=== PATIENT | male | born 1990 | race Two or more races ===

== ENCOUNTER 2019-12-12 21:06 | Emergency (ER) | payer OTHER ==
[~2019-12-12] VITALS: Ht 177.8 cm; Wt 72.6 kg
[2019-12-12 21:06] VITALS: BP 155/92
--- NOTE | 2019-12-12 21:23 | PCM.EKG ---
[facility] Test Date: 2019-12-12 Test Time: 21:06:13 Pat Name: WAI SNOWDEN Department: Patient ID: [id number] Room: Gender: M [employer] Specialist: ELISA : 1990 Requested By: Sergio WILKS Order Number: [id number] Reading MD: Sergio WILKS Measurements Intervals [place] Rate: 90 P: 72 WV: 155 QRS: 66 QRSD: 83 T: -3 QT: 358 QTc: 438 Interpretive Statements Sinus rhythm Borderline T abnormalities, inferior leads No previous ECG available for comparison Electronically Signed On 12-13-2019 22:09:51 CDT by Sergio WILKS Please click the below link to view image of tracing.
[2019-12-12 21:38] LABS: BASOPHIL % 0.5 % (0.0-0.2); EOSINOPHIL # 0.1 10^3/uL (0.0-0.2); EOSINOPHIL % 1.2 % (0.0-5.0); LYMPHOCYTES # 3.12 10^3/uL1 (1.0-4.8); LYMPHOCYTES % 36.7 % (24.0-44.0); MEAN CORP HGB 30.5 pg (26-34); MONOCYTES # 0.8 10^3/uL (0.3-0.8); MONOCYTES % 8.9 % (5.0-12.0); NEUTROPHIL # 4.4 10^3/uL (1.8-7.7); NEUTROPHILS % 52.2 % (41.0-85.0); PLATELET COUNT 264 10^3/uL (150-400); RED CELL DISTRIBUTION WIDTH 12.5 % (11.5-14.5)
--- NOTE | 2019-12-12 21:43 | DIREP ---
PROCEDURE:CHEST 1 VIEW COMPARISON:[facility], CR, XRAY ACUTE ABD INCL UPRIGHT CHEST, 10/09/2015, 10:08 AM. [facility], CT, CT-CHEST W/WO CONTRAST, 06/17/2015, 12:53 PM. [facility], CR, XRAY CHEST 2 VWS, 06/14/2015, 09:44 PM. INDICATIONS:Chest pain FINDINGS: LUNGS/PLEURA:No significant pulmonary parenchymal abnormalities. No effusions. VASCULATURE:Normal. Unremarkable pulmonary vasculature. CARDIAC:Normal. No cardiac silhouette abnormality or cardiomegaly. MEDIASTINUM:Normal. No visible mass or adenopathy. BONES:Normal. No fracture or visible bony lesion. OTHER:EKG leads overlie the chest. CONCLUSION:Normal examination. Dictated by: Wai Suh M.D. on 12/12/2019 at 09:41 PM
--- NOTE | 2019-12-12 21:44 | ER.PDOC ---
General Chief Complaint: Chest Pain-Cardiac Nature Stated Complaint: CHEST PAIN Time seen by MD: 21:43 Source: patient History of Present Illness Initial Comments Chest pain for 1 Month Severity/Quality: mild, dull Radiation: no radiation Activities at Onset: none Prior CP/Workup: No Prior Chest Pain, No Prior Cardiac Workup Nitro Today/Relief: No Nitro Taken Today Aspirin Today: No Aspirin Today Associated Symptoms: denies symptoms Allergies: Coded Allergies: No Known Drug Allergies (Verified Allergy, Unknown, 12/12/19) Past Medical History Medical History: no pertinent history Surgical History: no surgical history Social History Alcohol Use: rarely Drug Use: marijuana Constitutional: no symptoms reported Respiratory: no symptoms reported Cardiovascular: see HPI Gastrointestinal: no symptoms reported Genitourinary: no symptoms reported All Other Systems: Reviewed and Negative Physical Exam General Appearance: No Apparent Distress, WD/WN, Anxious Neck: Non-Tender, Full Range of Motion, Supple, Normal Inspection Respiratory: chest non-tender, lungs clear, normal breath sounds, no respiratory distress, no accessory muscle use Cardiovascular: Normal Peripheral Pulses, Regular Rate, Rhythm, No Edema, No Gallop, No JVD, No Murmur Gastrointestinal: Normal Bowel Sounds, No Organomegaly, No Pulsatile Mass, Non Tender, Soft Extremities: Normal Range of Motion, Non-Tender, Normal Inspection, No Pedal Edema, No Calf Tenderness, Normal Capillary Refill Neurologic/Psychiatric: technical assoc II-XII NML as Tested, No Motor/Sensory Deficits, Alert, Normal Mood/Affect, Oriented x 3 Skin: Normal Color, Warm/Dry Results/Orders Results/Orders Orders - ROSSY WILKS MD Cbc With Auto Diff (12/12/19 21:21) Comprehensive Metabolic Panel (12/12/19 21:21) Creatine Kinase (12/12/19 21:21) Creatine Kinase Mb (12/12/19 21:21) Troponin I (12/12/19 21:21) D-Dimer (12/12/19 21:21) Xr Chest 1v (12/12/19 21:21) Ekg-Routine (12/12/19 21:21) Vital Signs Date Time Temp Pulse Resp B/P (MAP) Pulse Ox O2 Delivery O2 Flow Rate FiO2 12/12/19 22:22 67 16 97 Room Air 12/12/19 21:55 76 16 97 Room Air 12/12/19 21:06 98.9 98 16 99 12/12/19 21:06 98.9 98 16 12/12/19 21:06 98.9 98 16 99 Room Air Laboratory Tests Test 12/12/19 21:13 White Blood Count 8.5 10^3/uL (4.5-11.0) Red Blood Count 4.65 10^6/uL (4.50-5.90) Hemoglobin 14.2 g/dL (13.9-16.3) Hematocrit 40.5 % (37.0-53.0) Mean Corpuscular Volume 87.1 fL (78-100) Mean Corpuscular Hemoglobin 30.5 pg (26-34) Mean Corpuscular Hemoglobin Concent 35.1 g/dL (33-36.5) Red Cell Distribution Width 12.5 % (11.5-14.5) Platelet Count 264 10^3/uL (150-400) Mean Platelet Volume 10.5 fL (7.8-11.0) Neutrophils (%) (Auto) 52.2 % (41.0-85.0) Lymphocytes (%) (Auto) 36.7 % (24.0-44.0) Monocytes (%) (Auto) 8.9 % (5.0-12.0) Neutrophils # (Auto) 4.4 10^3/uL (1.8-7.7) Lymphocytes # (Auto) 3.12 10^3/uL1 (1.0-4.8) Monocytes # (Auto) 0.8 10^3/uL (0.3-0.8) Absolute Immature Granulocyte (auto 0.04 10^3 u/L (0-2) Absolute Eosinophils (auto) 0.1 10^3/uL (0.0-0.2) Immature Granulocytes % 0.50 % (0.00-0.50) Eosinophils % 1.2 % (0.0-5.0) Basophils % 0.5 % (0.0-0.2) H Basophils # 0.0 10^3/uL (0.0-0.1) D-Dimer < 0.19 mg/L (0.19-0.49) L Sodium Level 140 mmol/L (132-145) Potassium Level 3.0 mmol/L (3.6-5.2) L Chloride Level 101.0 mmol/L (96-109) Carbon Dioxide Level 26.8 mmol/L (20.0-32) Anion Gap 15.2 Blood Urea Nitrogen 14 mg/dL (7-18) Creatinine 1.01 mg/dL (0.59-1.40) Estimated GFR () 105.7 (>/=60) Est GFR (CKD-EPI)(Non-Afr [place]) 87.3 (>/=60) BUN/Creatinine Ratio 13.0 Glucose Level 98 mg/dL (70-110) Calcium Level 9.3 mg/dL (8.4-10.5) Total Bilirubin 0.9 mg/dL (0.2-1.0) Aspartate Amino Transferase (AST) 13 U/L (0-35) Alanine Aminotransferase (ALT) 20 U/L (12-78) Alkaline Phosphatase 58 U/L (50-136) Total Creatine Kinase 120 U/L (39-308) Creatine Kinase MB 2.1 ng/mL (0.5-3.6) Troponin I < 0.02 ng/mL (0.00-0.05) Total Protein 8.2 g/dL (6.4-8.2) Albumin 4.8 g/dL (3.4-5.0) Globulin 3.4 EKG/XRAY/CT/US EKG: NSR XRAY: chest (Normal) Departure Time of Disposition: 22:25 Disposition: 01 HOME, SELF-CARE Impression: Primary Impression: Anxiety Condition: Stable Referrals: PCP,UNKNOWN (PCP) PRIMARY CARE PROVIDER Additional Instructions: F/U with your PCP in 2-3 days Return to ED if worsening symptoms or concerns Duration or Time Spent with Pa: 45 min ROSSY WILKS MD December 12, 2019 21:44
[2019-12-12 21:55] VITALS: BP 136/76
[2019-12-12 22:21] LABS: ALANINE AMINOTRANSFERASE(ML) 20 U/L (12-78); ALKALINE PHOSPHATASE 58 U/L (50-136); ASPARTATE AMINO TRANSFERASE 13 U/L (0-35); CALCIUM 9.3 mg/dL (8.4-10.5); CARBON DIOXIDE 26.8 mmol/L (20.0-32); GLUCOSE 98 mg/dL (70-110)
[2019-12-12 22:22] VITALS: BP 129/79
== END 2019-12-12 22:32 | disposition home or self-care (01) ==
LOC: ER 21:06
DX: F41.9 Anxiety disorder, unspecified (principal); R07.9 Chest pain, unspecified; F12.90 Cannabis use, unspecified, uncomplicated
CPT/HCPCS: 36415; 71045; 80053; 82550; 82553; 84484; 85025; 85379; 93005; 99285